=== PATIENT | male | born 1980 | race African-American/Black ===

== ENCOUNTER 2019-05-19 03:34 | Emergency (ER) | payer SELFPAY ==
[~2019-05-19] VITALS: Ht 167.6 cm; Wt 63.5 kg
[2019-05-19 03:35] VITALS: BP 165/88
--- NOTE | 2019-05-19 04:20 | PHYS DOC ---
Past Medical History Past Medical History: Unknown Additional Past Medical Histor: PT UNCOOPERATIVE WILL NOT GIVE MEDICAL HISTORY Past Surgical History: Other Additional Past Surgical Histo: LEFT BKA Alcohol Use: Occasionally Drug Use: Marijuana Adult General Chief Complaint Chief Complaint: LOWER EXT PAIN HPI HPI Patient is a 38 year old male brought in by EMS to chief complaint of initially complained of leg pain no trauma however then began to complain of basically just needing a place to stay. He said he is relocating to [facility] from [facility]. He does provide a limited history he said he was really not interested in answering the typical triaged questions required by our nursing staff nevertheless he does tell me that he has no daily medications. He does not have any recent trauma. He does say that he called paramedics because he is looking for a place to go Review of Systems Review of Systems Limited by patient's being uncooperative Allergies Allergies Allergies Coded Allergies Type Severity Reaction Last Updated Verified No Known Drug Allergies 05/19/19 No Physical Exam Physical Exam Constitutional: Well developed, well nourished, no acute distress, non-toxic appearance. []Disheveled and malodorous HENT: Normocephalic, atraumatic, bilateral external ears normal, oropharynx moist, no oral exudates, nose normal. [] Eyes: PERRLA, EOMI, conjunctiva normal, no discharge. [] Neck: Normal range of motion, no tenderness, supple, no stridor. [] Pulmonary: Normal respiratory effort no increased work of breathing no obvious chest wall trauma Abdomen: Bowel sounds normal, soft, no tenderness, no masses, no pulsatile masses. [] Skin: Warm, dry, no erythema, no rash. [] Back: No tenderness, no CVA tenderness. [] Extremities: BKA left lower extremity appears to be within normal limits right wilkins area there is a evidence of a skin graft appears to be well-healed Neurologic: Alert and oriented X 3, normal motor function, normal sensory function, no focal deficits noted. Psychologic: Patient does have some mild pressured speech some mild agitation but he is redirectable and overly calm in nature for the most part. Current Patient Data Vital Signs Vital Signs Date Time Temp Pulse Resp B/P (MAP) Pulse Ox O2 Delivery O2 Flow Rate FiO2 05/19/19 03:35 97.5 87 18 165/88 (113) 98 Room Air 97.5 EKG EKG [] Radiology/Procedures Radiology/Procedures [] Course & Med Decision Making Course & Med Decision Making Pertinent Labs and Imaging studies reviewed. (See chart for details) []38-year-old male presenting with basically looking for a place to stay. Vitals were okay lower external examination appeared to be within normal limits for somebody with a history of a BKA and a prior wilkins surgery. Patient did tell me he just wants something to eat and a place to go. He'll be discharged in stable condition he was offered the phone line in the waiting room to contact a homeless long term as per usual protocol in this department Dragon Disclaimer Dragon Disclaimer This electronic medical record was generated, in whole or in part, using a voice recognition dictation system. Departure Departure Impression: Primary Impression: Homelessness Disposition: 01 HOME, SELF-CARE Condition: STABLE Patient Instructions: Chronic Pain MINDI NOEL MD May 19, 2019 04:20
== END 2019-05-19 04:05 | disposition home or self-care (01) ==
LOC: ER 03:34
DX: M79.605 Pain in left leg (principal); Z59.0 Homelessness
CPT/HCPCS: 99281; 99283

== ENCOUNTER 2019-09-17 22:35 | Emergency (ER) | payer SELFPAY | END 2019-09-17 23:00 | disposition left against medical advice (07) | LOC: ER 22:35 | DX: M79.669 Pain in unspecified lower leg (principal); Z53.21 Procedure and treatment not carried out due to patient leaving prior to being seen by health care provider ==

== ENCOUNTER 2019-11-16 22:58 | Emergency (ER) | payer SELFPAY ==
[~2019-11-16] VITALS: Ht 165.1 cm; Wt 81.0 kg
[2019-11-16 22:58] VITALS: BP 154/75
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
== END 2019-11-16 23:38 | disposition home or self-care (01) ==
LOC: ER 22:58
DX: Z76.5 Malingerer [conscious simulation] (principal); M25.562 Pain in left knee
CPT/HCPCS: 99284

== ENCOUNTER 2021-02-19 03:21 | Emergency (ER) | payer MEDICARE ==
[~2021-02-19] VITALS: Ht 167.6 cm; Wt 68.1 kg
[2021-02-19 03:23] VITALS: BP 147/78
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
--- NOTE | 2021-02-19 05:51 | RAD ---
INDICATION: Reason: RIGHT FOOT PAIN / Spl. Instructions: / History: COMPARISON: None. IMPRESSION: Right foot: 3 views obtained. Mild degenerative changes without acute fracture or dislocation seen. P ostoperative changes to the distal tibia with intramedullary liana. There is some surgical clips in the soft tissues above the ankle. There is a suspected tibiotalar joint effusion. Electronically signed by: Bradley Faith MD (02/19/2021 5:49 AM) [id number]
== END 2021-02-19 06:40 | disposition home or self-care (01) ==
LOC: ER 03:21
DX: M79.671 Pain in right foot (principal); Z59.0 Homelessness; F20.9 Schizophrenia, unspecified; F17.200 Nicotine dependence, unspecified, uncomplicated
CPT/HCPCS: 73630; 99284

== ENCOUNTER 2021-02-22 12:25 | Emergency (ER) | payer MEDICARE ==
[~2021-02-22] VITALS: Ht 175.3 cm; Wt 60.0 kg
[2021-02-22 12:33] VITALS: BP 132/64
[2021-02-22 13:52] LABS: BASO % 1 % (0-3); EOS # 0.1 x10^3/uL (0.0-0.7); EOS % 1 % (0-3); HEMATOCRIT 41.3 % (39.0-53.0); HEMOGLOBIN 13.6 g/dL (13.0-17.5); LYMPH # 1.8 x10^3/uL (1.0-4.8); LYMPH % 40 % (24-48); MEAN CORPUSCULAR HEMOGLOBIN 29 pg (25-35); MEAN CORPUSCULAR HGB CONC 33 g/dL (31-37); MEAN CORPUSCULAR VOLUME 89 fL (79-100); MONO # 0.5 x10^3/uL (0.0-1.1); MONO % 10 % (0-9); NEUT # 2.2 x10^3/uL (1.8-7.7); NEUT % 48 % (31-73); PLATELET COUNT 226 x10^3/uL (140-400); RED BLOOD COUNT 4.67 x10^6/uL (4.30-5.70); RED CELL DISTRIBUTION WIDTH 13.7 % (11.5-14.5); WHITE BLOOD COUNT 4.6 x10^3/uL (4.0-11.0)
[2021-02-22 14:00] LABS: CALCIUM 8.6 mg/dL (8.5-10.1); CREATININE 0.8 mg/dL (0.7-1.3); GFR 128.3; POTASSIUM 3.8 mmol/L (3.5-5.1)
[2021-02-22 14:05] LABS: ALBUMIN/GLOBULIN RATIO 1.7 (1.0-1.7); TOTAL BILIRUBIN 0.1 mg/dL (0.2-1.0); TOTAL PROTEIN 6.4 g/dL (6.4-8.2)
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
== END 2021-02-22 15:07 | disposition home or self-care (01) ==
LOC: ER 12:25
DX: F10.129 Alcohol abuse with intoxication, unspecified (principal); F20.9 Schizophrenia, unspecified; F17.200 Nicotine dependence, unspecified, uncomplicated; Y90.4 Blood alcohol level of 80-99 mg/100 ml
CPT/HCPCS: 36415; 80053; 85025; 99284; G0480